=== PATIENT | female | born 1960 | race Caucasian/White ===

== ENCOUNTER 2022-08-06 16:11 | Emergency (ER) | payer SELFPAY ==
[2022-08-06 16:26] VITALS: BP 163/84; PULSE 95; RESP 18; TEMP 36.8; O2SAT 95; BMI 30.2
--- NOTE | 2022-08-06 16:40 | ED_ITS ---
HPI - Skin/Abscess/Foreign Bdy General: Chief complaint: Skin/Abscess/Foreign Body Stated complaint: bite on back Time Seen by Provider: 08/06/22 16:40 History of Present Illness: 62-year-old lady presenting due to skin concern. Has noticed a increasingly red and tender area on the right flank. She noticed it approximately 4 days ago without specific known provoking event. Initially very small however subsequently grown and become more painful. Intensity is low-tension. Course has worsened. Denies signs of systemic illness. Denies frequent skin infections in the past. No other specific changes in health, exacerbating, or alleviating factors identified. Onset (ago): day(s) Tetanus up to date: yes Location: back Severity: moderate Quality: aching Pain Consistency: constant Relieving factors: none Exacerbating factors: palpation Associated symptoms: Reports no associated symptoms Review of Systems General: Reports: 10 or more systems reviewed and unremarkable except in HPI and below PFSH ED PFSH: Medical History (Updated 08/21/22 @ 00:53 by Jamir Monique MD) No significant past medical history Surgical History (Updated 08/21/22 @ 00:53 by Jamir Monique MD) No significant past surgical history Physical Exam Const: COMMON NORMALS: alert GENERAL APPEARANCE: cooperative and well developed HENMT: COMMON NORMALS: normocephalic and atraumatic HEAD & SCALP: normocephalic and atraumatic Eye: COMMON NORMALS: conjunctivae normal CONJUNCTIVA: Yes conjunctivae normal SCLERA: sclerae normal Neck/C-Spine: COMMON NORMALS: supple GENERAL: Yes trachea midline Resp: COMMON NORMALS: clear to auscultation bilaterally EFFORT & INSPECTION: Yes able to speak in complete sentences AUSCULTATION: clear to auscultation bilaterally Cardio: COMMON NORMALS: regular rate and regular rhythm RATE: regular rate RHYTHM: regular rhythm GI: COMMON NORMALS: Soft to palpation PALPATION: Yes Soft to palpation and No Tenderness to palpation present (GI) Extremity: GENERAL: Yes normal exam except as noted and No edema Neuro: COMMON NORMALS: moves all extremities SENSORIUM/ORIENTATION: Yes alert and No Orientation impaired Psych: COMMON NORMALS: mental status grossly normal and Normal thought process present THOUGHT PROCESS: Normal thought process present Skin: NARRATIVE SKIN EXAM: Right posterior flank approximately 8 cm in diameter roughly circular erythematous lesion with tiny central mild eschar. Minimal amount of drainage. No appreciable fluctuance, is tender and warm to palpation Course Vital Signs: Vital signs: Vital Signs Temperature 98.3 F 08/06/22 16:26 Pulse Rate 95 08/06/22 16:26 Respiratory Rate 18 08/06/22 16:26 Blood Pressure 163/84 08/06/22 16:26 Pulse Oximetry 95 08/06/22 16:26 Oxygen Delivery Me thod 08/06/22 16:26 MDM - Skin/Abscess/Foreign Bdy Medicial Decision Making 62-year-old lady presenting with skin complaint possibly with possible insect bite. She is nontoxic and denies signs of systemic illness. Exam as above. [id number] soft tissue ultrasound performed and there is no drainable fluid collection. Tissue appears cellulitic. Patient given analgesia and will be prescribed antibiotics with first dose administered in the ER. Most likely etiology of patient symptoms is infected skin lesion. The results of ED evaluation were discussed with the patient including prescriptions and/or symptomatic cares (if applicable) including appropriate and responsible use, followup plan, and return precautions. The patient verbalized understanding and felt safe for discharge. Medical Records I reviewed the patient's medical records. Lab Data I reviewed the patient's lab results. Discharge Plan Discharge Patient Disposition: Home Clinical Impression: Cellulitis, Spider bite Condition: Stable Prescriptions: New oxycodone 5 mg tablet 5 mg PO Q4H PRN (Reason: pain) Qty: 10 0RF Discharge Orders: Discharge ED (Routine); Ordered 08/06/22 Ordered By: Jamir Monique Discharge Diet: Usual diet Discharge Activity: Increase activity as tolerated Patient Instructions: Sulfamethoxazole/Trimethoprim (By mouth) (Bactrim, Bactrim DS,..., Cellulitis (ED), Insect Bite or Sting (ED), Opioid Safety Activity Restrictions/Additional Instructions: Thank you for visiting the emergency department. You were seen and evaluated for skin lesion. The most likely cause of this is infected insect bite. I will prescribe antibiotics and oxycodone for pain. Use oxycodone cautiously as it is an opioid. You may use [id number] medications such as acetaminophen and ibuprofen for pain however please do not exceed the daily recommended dosage as listed on the packaging and please keep in mind that many namebrand medications contain the same active ingredients. Please avoid these medications if previously instructed to do so by another physician due to other underlying medical condition. Please follow-up with a primary care provider. Return to the emergency department for worsening symptoms, evidence of systemic infection such as fevers nausea vomiting diarrhea, uncontrolled pain, any peeling of the skin, any skin lesions involving mucous membranes, or anything else that you are concerned about and feel needs emergency department evaluation. Coding Level of Care Code ED Porcelain Enameling Supervisor for Elise Dai
[2022-08-06] MEDS: sulfamethoxazole-trimeth DS 160-800 mg Tablet 1 TAB PO (17:38)
--- NOTE | 2022-08-12 13:16 | DCPLANNER ---
clinique counter manager called patient due to no primary care physician - patient stated that she sees Dr. Espinosa
== END 2022-08-06 17:30 | disposition home or self-care (01) ==
PROVIDERS: Emergency Provider Emergency Medicine
DX: L03.312 Cellulitis of back [any part except buttock and flank] (principal); S30.860A Insect bite (nonvenomous) of lower back and pelvis, initial encounter; W57.XXXA Bitten or stung by nonvenomous insect and other nonvenomous arthropods, initial encounter
CPT/HCPCS: 99283

== ENCOUNTER 2022-11-04 04:41 | Emergency (ER) | payer SELFPAY ==
[2022-11-04 04:50] VITALS: BP 218/114; PULSE 90; RESP 16; O2SAT 97
--- NOTE | 2022-11-04 04:53 | ED_ITS ---
HPI - Ear Problem General: Chief complaint: Ear Stated complaint: Right ear pain Time Seen by Provider: 11/04/22 04:43 Source: patient Mode of arrival: ambulatory Limitations: no limitations History of Present Illness: 62-year-old female states she has been having right ear pain over the last 3 to 4 days she states it is very sore to canal she has been trying to use a Q-tip and she has had increased swelling states she is able to get a Q-tip in there she has had no drainage she rates her pain a 6 out of 10 denies any fever she is not a diabetic. Associated symptoms: Reports ear or mastoid pain; Denies fever(s), headache(s) or neck pain Review of Systems Const: Denies: fever(s) or chills ENMT: Reports: ear or mastoid pain; Denies: throat pain or dental pain Card: Denies: chest pain Resp: Denies: dyspnea GI: Denies: abdominal pain, nausea, vomiting or diarrhea Musc: Denies: neck pain or back pain Skin/Breast: Denies: rash Neuro: Denies: headache(s) PFSH ED PFSH: Medical History No significant past medical history Surgical History (Updated 08/21/22 @ 00:53 by Jamir Monique MD) No significant past surgical history Physical Exam Const: COMMON NORMALS: no acute distress and patient oriented x3 HENMT: COMMON NORMALS: normocephalic HEAD & SCALP: normocephalic OTHER: Swelling of right ear canal otitis externa no signs of malignant otitis externa no redness of the auricle no tenderness over mastoid Eye: COMMON NORMALS: conjunctivae normal CONJUNCTIVA: Yes conjunctivae normal Neck/C-Spine: COMMON NORMALS: supple Chest: COMMONS NORMALS: normal inspection of the chest Resp: COMMON NORMALS: normal respiratory effort Cardio: COMMON NORMALS: regular rate RATE: regular rate GI: INSPECTION: Yes normal to inspection Extremity: COMMON NORMALS: normal to inspection Neuro: COMMON NORMALS: patient oriented x3 Psych: COMMON NORMALS: mental status grossly normal Skin: COMMON NORMALS: no rashes or lesions noted GENERAL SKIN EXAM: no rashes or lesions noted Course Vital Signs: Vital signs: Vital Signs Pulse Rate 90 11/04/22 04:50 Respiratory Rate 16 11/04/22 04:50 Blood Pressure 218/114 11/04/22 04:50 Pulse Oximetry 97 11/04/22 04:50 MDM - Ear Medical Decision Making Patient presents here with otitis externa she does have severe swelling of the ear canal did place an ear wick placed ofloxacin on it we will prescribe her ofloxacin for home she is no signs of malignant otitis externa she is stable for discharge she is to follow-up with her PCP and return if worsening Discharge Plan Discharge Patient Disposition: Home Clinical Impression: Otitis externa Condition: Stable Prescriptions: New ofloxacin 0.3 % drops 10 drp otic (ear) DAILY 7 Days Qty: 10 0RF No Action oxycodone 5 mg tablet 5 mg PO Q4H PRN (Reason: pain) Qty: 10 0RF Discharge Orders: Discharge ED (Routine); Ordered 11/04/22 Ordered By: Tegan Witt Discharge Diet: Advance as tolerated Discharge Activity: Resume usual activity Patient Instructions: Otitis Externa - Adult, Swimmer's Ear (ED) Coding Level of Care Code ED Superintendent Plant Protection for Elise Dai
[2022-11-04] MEDS: naproxen 500 mg Tablet PO (05:08)
[2022-11-04] MEDS: ofloxacin 0.3% otic 5 mL Btl 3 DROP EAR-RIGHT (05:22)
[2022-11-04 05:27] VITALS: PULSE 90; RESP 16; O2SAT 94
--- NOTE | 2022-11-05 10:00 | PC.SOCIAL ---
ENT Referral Referral to to ENT at this time; clinic to contact patient with appt date/time.
--- NOTE | 2022-11-07 11:26 | DCPLANNER ---
Patient was called due to no primary care physician - no answer at this time, a voicemail was left for patient to return call.
== END 2022-11-04 05:31 | disposition home or self-care (01) ==
PROVIDERS: Emergency Provider Emergency Medicine
DX: H60.91 Unspecified otitis externa, right ear (principal)
CPT/HCPCS: 99283

== ENCOUNTER 2022-11-05 05:34 | Emergency (ER) | payer SELFPAY ==
[2022-11-05 05:37] VITALS: BP 188/102; PULSE 84; RESP 20; TEMP 36.5; O2SAT 98; BMI 29.8
[2022-11-05 05:39] VITALS: BP 162/127; RESP 20; O2SAT 97
--- NOTE | 2022-11-05 05:46 | ED_ITS ---
HPI - Ear Problem General: Chief complaint: Ear Stated complaint: Rt Ear Pain Time Seen by Provider: 11/05/22 05:40 Source: patient Mode of arrival: ambulatory History of Present Illness: 62-year-old female presents to the emergency room with complaint of right ear pain. She was seen 24 hours ago with otitis externa started on ofloxacin drops and an ear wick was placed. Since that time she has removed the ear wick she is complaining of not being able to sleep she has been manipulating the external canal on the right with a cotton swab. She is concerned because of the drainage she wants the drainage evacuated. No fever. She reports increased pain radiating from the ear. MD Complaint: ear pain and ear discharge Duration: constant Severity: moderate Relieving factors: nothing Exacerbating factors: nothing Associated symptoms: Reports ear or mastoid pain, external ear pain, headache(s) and neck pain; Denies fever(s), hearing loss, rhinorrhea or tinnitus Treatment prior to arrival: eardrops, attempt at ear wax removal and oral analgesic Review of Systems Const: Denies: fever(s) or chills ENMT: Reports: ear or mastoid pain and ear discharge; Denies: tinnitus Card: Denies: chest pain or dyspnea on exertion Resp: Denies: dyspnea GI: Denies: abdominal pain : Denies: dysuria, urinary frequency or urinary urgency Musc: Reports: neck pain Skin/Breast: Reports: skin tenderness (Right pinna) Neuro: Reports: headache(s) [facility] ED PFSH: Medical History No significant past medical history Surgical History No significant past surgical history Physical Exam Const: COMMON NORMALS: no acute distress GENERAL APPEARANCE: cooperative and comfortable ORIENTATION/CONSCIOUSNESS: Yes awake, Yes oriented to person, Yes oriented to place and Yes oriented to time HENMT: EXTERNAL EAR: Yes external ear abnormal Abnormal external ear present: auricular tenderness (Mild redness no induration) and Yes no periauricular adenopathy EXTERNAL AUDITORY CANAL: Abnormal EAC present EAC laterality: right (Thin purulent drainage) Details: erythema, edema and EAC tenderness Neuro: SENSORIUM/ORIENTATION: Yes oriented to person, Yes oriented to place and Yes oriented to time Course Vital Signs: Vital signs: Vital Signs Temperature 97.7 F 11/05/22 05:37 Pulse Rate 84 11/05/22 05:37 Respiratory Rate 20 H 11/05/22 05:37 Blood Pressure 188/102 11/05/22 05:37 Pulse Oximetry 98 11/05/22 05:37 MDM - Ear Medical Decision Making Small amount of cotton debris external auditory canal appears to be from a cotton swab could be remnants of the ear wick. This was cleared a ear wick was placed in the right extra auditory canal under direct visualization. Saline applied to expand the wick. Advised patient to continue the ofloxacin drops she is extremely concerned because of the sensation of fullness in the ear she wants more aggressive treatment. Was started on Cipro 750 twice daily also give her hydrocodone for pain we will have case management make arrangements for follow- up with ENT Medical Records I reviewed the patient's medical records. Discharge Plan Discharge Patient Disposition: Home Clinical Impression: Otitis externa Condition: Stable Prescriptions: New hydrocodone-acetaminophen 5-325 mg tablet 1 tab PO Q6H PRN (Reason: pain) Qty: 10 0RF ciprofloxacin HCl 750 mg tablet 750 mg PO BID Qty: 14 0RF Discontinued oxycodone 5 mg tablet 5 mg PO Q4H PRN (Reason: pain) Qty: 10 0RF No Action ofloxacin 0.3 % drops 10 drp otic (ear) DAILY 7 Days Qty: 10 0RF Discharge Orders: Discharge ED (Routine); Ordered 11/05/22 Ordered By: Elmo Chowdary Discharge Diet: Usual diet Discharge Activity: Increase activity as tolerated Patient Instructions: Opioid Safety, Pain Management Activity Restrictions/Additional Instructions: Case management will contact you with appointment for follow-up with ENT. Coding Level of Care Code ED Asian Studies Professor for Elise Dai
[2022-11-05 06:04] VITALS: BP 148/81; PULSE 80; RESP 16; O2SAT 97
== END 2022-11-05 06:09 | disposition home or self-care (01) ==
PROVIDERS: Emergency Provider Family Medicine
DX: H60.91 Unspecified otitis externa, right ear (principal)
CPT/HCPCS: 99283

== ENCOUNTER 2022-11-06 13:58 | Emergency (ER) | payer SELFPAY ==
[2022-11-06 14:08] VITALS: BP 178/97; PULSE 84; RESP 18; TEMP 36.7; O2SAT 96
--- NOTE | 2022-11-06 14:30 | ED_ITS ---
HPI - SOB/Dyspnea General: Chief Complaint: Shortness of Breath/Dyspnea Stated Complaint: asthma, out of rescue inhaler Time Seen by Provider: 11/06/22 14:12 Source: patient Mode of arrival: ambulatory Limitations: no limitations History of Present Illness: HPI Narrative: 62-year-old female with a history of asthma presents to the clinic today for increased shortness of breath. Patient reports she is here visiting a family member and her insurance did not recently cover her Combivent so she has been out. Patient reports since February of last year she has noticed increased shortness of breath. Over the last several months while the pollens been high she has had increased shortness of breath also. Patient reports she is able to complete all daily tasks without problems. She denies any recent illnesses. Patient reports she is just here today for a refill on her albuterol. Review of Systems General: Reports: 10 or more systems reviewed and unremarkable except in HPI and below PFSH ED PFSH: Medical History No significant past medical history Surgical History No significant past surgical history Physical Exam Const: COMMON NORMALS: no acute distress, average body habitus, patient oriented x3, no limitations, healthy appearing and alert HENMT: COMMON NORMALS: normocephalic, atraumatic, external ears normal, Normal external nose present and Normal nasal mucous membranes and turbinates present HEAD & SCALP: normocephalic and atraumatic NOSE: Normal external nose present and Normal nasal mucous membranes and turbinates present EXTERNAL EAR: Yes external ears normal Eye: COMMON NORMALS: conjunctivae normal CONJUNCTIVA: Yes conjunctivae normal Resp: COMMON NORMALS: normal respiratory effort and No retractions EFFORT & INSPECTION: Yes able to speak in complete sentences AUSCULTATION: wheezes exp iratory wheezes and scattered wheezes Cardio: COMMON NORMALS: regular rate, regular rhythm and No murmurs present (Cardio) RATE: regular rate RHYTHM: regular rhythm GI: COMMON NORMALS: Normal to inspection, nondistended, normoactive bowel sounds present, Soft to palpation and non-tender PALPATION: Yes Soft to palpation Extremity: COMMON NORMALS: normal to inspection, full ROM and no pedal edema Neuro: COMMON NORMALS: patient oriented x3 SENSORIUM/ORIENTATION: Yes alert Psych: COMMON NORMALS: mental status grossly normal, Normal thought process present and cooperative THOUGHT PROCESS: Normal thought process present Skin: COMMON NORMALS: no rashes or lesions noted and no wounds GENERAL SKIN EXAM: no rashes or lesions noted Course ED course: Patient presents to the ER today for a refill on albuterol. Patient is here vi siting family and has been without her albuterol or Combivent for quite some time. She has noticed increased shortness of breath over the last several months. Denies any recent acute illness. Patient is in no acute distress here today. Vital Signs: Vital signs: Vital Signs Temperature 98.1 F 11/06/22 14:08 Pulse Rate 84 11/06/22 14:08 Respiratory Rate 18 11/06/22 14:08 Blood Pressure 178/97 11/06/22 14:08 Pulse Oximetry 96 11/06/22 14:08 Oxygen Delivery Me thod Room Air 11/06/22 14:08 MDM - SOB/Dyspnea Medical Decision Making Patient has a history of asthma and is out of her medications. We will refill her albuterol at this time. She would like a refill on Combivent but is unsure if her insurance will cover it. She reports Combivent works better and I am okay with her trying that and if not Ventolin would be cheaper. Recommended Mucinex. She does have some wheezes bilaterally so we will do a short burst of steroids to help open her up. Patient is in no acute distress and vital signs are normal. Blood pressure is elevated. Recommended patient continue checking this at home and if it remains elevated she needs to see her PCP. Patient has no symptoms associated with elevated blood pressure. Return to the ER with any new or worsening symptoms. Patient verbalized understanding and was in agreement with the treatment plan. Critical Care Time Critical Care Time: Critical Care Time: No Discharge Plan Discharge Patient Disposition: Home Clinical Impression: Asthma with exacerbation Qualifiers: Asthma severity: mild Asthma persistence: unspecified Qualified Code(s): J45.901 - Unspecified asthma with (acute) exacerbation Condition: Stable Prescriptions: New Combivent Respimat 20-100 mcg/actuation mist 1 puff inhalation Q6H Qty: 4 0RF Ventolin HFA 90 mcg/actuation HFA aerosol inhaler 2 inh inhalation Q6H PRN (Reason: shortness of breath or wheezing) Qty: 6.7 0RF prednisone 20 mg tablet 40 mg PO DAILY 4 Days Qty: 8 0RF No Action hydrocodone-acetaminophen 5-325 mg tablet 1 tab PO Q6H PRN (Reason: pain) Qty: 10 0RF ciprofloxacin HCl 750 mg tablet 750 mg PO BID Qty: 14 0RF ofloxacin 0.3 % drops 10 drp otic (ear) DAILY 7 Days Qty: 10 0RF Discharge Orders: Discharge ED (Routine); Ordered 11/06/22 Ordered By: Minnie Moran Discharge Diet: Usual diet Discharge Activity: Resume usual activity Patient Instructions: Opioid Safety, Pain Management Activity Restrictions/Additional Instructions: Take prednisone as prescribed. Take the Combivent if insurance coverage is okay otherwise corn picker Ventolin and take that as needed. Follow-up with PCP. Also recommend Mucinex twice daily. Return to ER with new or worsening symptoms. Coding Level of Care Code ED Pan Washer Hand for Elise Dai
== END 2022-11-06 14:28 | disposition home or self-care (01) ==
PROVIDERS: Emergency Provider Physician Assistant
DX: J45.901 Unspecified asthma with (acute) exacerbation (principal); R03.0 Elevated blood-pressure reading, without diagnosis of hypertension; Z76.0 Encounter for issue of repeat prescription
CPT/HCPCS: 99284

== ENCOUNTER 2022-11-16 22:50 | Emergency (ER) | payer SELFPAY ==
[2022-11-16 23:09] VITALS: BP 165/91; PULSE 85; RESP 18; TEMP 36.7; O2SAT 96
--- NOTE | 2022-11-16 23:28 | ED_ITS ---
HPI - Skin/Abscess/Foreign Bdy General: Chief complaint: Skin/Abscess/Foreign Body Stated complaint: Rt Leg Bite Time Seen by Provider: 11/16/22 23:12 History of Present Illness: 62-year-old female comes in today with complaints of tender lesion to the right lower leg. Patient reports over the last 2 days the redness around it has increased significantly and has also drained a little purulent drainage from it. Patient comes in tonight due to increasing pain and swelling from the lesion. Patient appears nontoxic. Patient appears mild to moderate pain. Associated symptoms: Deny vomiting Review of Systems General: Reports: 10 or more systems reviewed and unremarkable except in HPI and below ENMT: Denies: throat pain Card: Denies: chest pain Resp: Denies: dyspnea GI: Denies: vomiting : Denies: difficulty voiding Musc: Reports: extremity pain Skin/Breast: Reports: erythema and new lesions [facility] ED PFSH: Medical History No significant past medical history Surgical History No significant past surgical history Physical Exam Const: COMMON NORMALS: alert HENMT: COMMON NORMALS: normocephalic HEAD & SCALP: normocephalic Neck/C-Spine: COMMON NORMALS: full ROM Resp: COMMON NORMALS: normal respiratory effort and clear to auscultation bilaterally AUSCULTATION: clear to auscultation bilaterally Cardio: COMMON NORMALS: regular rate and regular rhythm RATE: regular rate RHYTHM: regular rhythm Back/Pelvis: COMMON NORMALS: thoracic and lumbar spine normal to inspection Extremity: RIGHT LOWER EXTREMITY: Yes lower leg (Area of redness approximately 15 cm with a central punctate lesion) Right lower leg: Yes palpation (Swelling and tenderness anterior front leg with punctate lesion) Neuro: SENSORIUM/ORIENTATION: Yes alert Skin: COMMON NORMALS: turgor normal GENERAL SKIN EXAM: turgor normal LESIONS: lesion noted (Right lower leg) Procedures Abscess I/D Site: lower extremity Side (if applicable): right Local Anesthetic: lidocaine 1% Amount of anesthesia used (mL): 6 Technique: incised with #11 blade Amount of fluid expressed (mL): 5 Irrigation: No Course Vital Signs: Vital signs: Vital Signs Temperature 98.1 F 11/16/22 23:09 Pulse Rate 85 07/03/23 23:09 Respiratory Rate 18 11/16/22 23:09 Blood Pressure 165/91 11/16/22 23:09 Pulse Oximetry 96 11/16/22 23:09 Oxygen Delivery Me thod Room Air 11/16/22 23:09 MDM - Skin/Abscess/Foreign Bdy Medicial Decision Making Patient comes in today for complaints of redness and swelling to the right lower leg with a central punctate lesion. Distal pulses are intact. Skin is warm and dry. Patient has significant induration and redness to the left lower leg on the anterior aspect within the central punctate lesion draining clear fluid. Patient reported some purulent drainage. Differential diagnosis includes but not limited to abscess, cellulitis, local reaction insect bite. Under local anesthetic incision and drainage was performed with good results of purulent drainage. Patient be started on Bactrim recommended to elevate leg is much as possible and follow-up with primary care. Patient reported understanding and agreed to plan. Discharge Plan Discharge Patient Disposition: Home Clinical Impression: Abscess of lower leg Condition: Stable Prescriptions: New sulfamethoxazole-trimethoprim 800-160 mg tablet 1 tab PO DAILY 6 Days Qty: 12 0RF No Action hydrocodone-acetaminophen 5-325 mg tablet 1 tab PO Q6H PRN (Reason: pain) Qty: 10 0RF ciprofloxacin HCl 750 mg tablet 750 mg PO BID Qty: 14 0RF Combivent Respimat 20-100 mcg/actuation mist 1 puff inhalation Q6H Qty: 4 0RF Ventolin HFA 90 mcg/actuation HFA aerosol inhaler 2 inh inhalation Q6H PRN (Reason: shortness of breath or wheezing) Qty: 6.7 0RF Discharge Orders: Discharge ED (Routine); Ordered 11/17/22 Ordered By: Hubert Wei Discharge Diet: Usual diet Discharge Activity: Increase activity as tolerated Patient Instructions: Abscess Incision and Drainage (DC) Activity Restrictions/Additional Instructions: PrimaryHome and rest. Activity as tolerated. Elevate leg is much as possible. Take oral antibiotic 1 tablet twice a day for total of 7 days. Care as needed. Return to ED for worsening symptoms such as elevated fever, inability to hold fluids down, or new concerns. Coding Level of Care Code ED Facility Mechanic for Elise Dai
[2022-11-17] MEDS: sulfamethoxazole-trimeth DS 160-800 mg Tablet 1 TAB PO (00:38)
[2022-11-17] MEDS: sulfamethoxazole-trimeth DS 160-800 mg Tablet 2 TAB PO (00:38)
== END 2022-11-17 00:44 | disposition home or self-care (01) ==
PROVIDERS: Emergency Provider Nurse Practitioner Family
DX: L02.415 Cutaneous abscess of right lower limb (principal)
CPT/HCPCS: 10060; 99283